=== PATIENT | male | born 1945 ===

== ENCOUNTER 2023-12-09 05:49 | Day surgery (SDC) | payer OTHER, MEDICARE, SELFPAY ==
--- NOTE | 2023-11-04 11:20 | CM ---
Patient is scheduled for an elective R THR on 12/09/23- he is a same day patient. Spoke with patient's prior to surgery. Introduced role of Orthopedic Navigator. She reports that she and patient live in a one story home. There is one step to
enter. He currently functions independently and uses a cane. He also has a raised toilet seat, hip kit and rolling walker. He has never had VN services. PCP is Dr. Sylvester You.
Discussed orthopedic program and post surgical plans. Reviewed that patient will have VN services initially (medicare.gov website and ratings reviewed) and will then start outpatient PT. She selects [facility] (face sheet faxed to VN to
facilitate confirmation of benefits) for patient's home care needs. She is unsure where he will go for outpatient PT.
She is in agreement with plan and confirms that she will be home with him. She also states that their son will be available.
Patient will complete online education.
Plan: Orthopedic Navigator will remain available to assist with the care of patient and will reassess discharge needs after surgery.
[2023-11-18 10:48] VITALS: BMI 34.3
[2023-11-18 11:44] LABS: Hemoglobin 15.3 g/dL (13.0-18.0); Mean Corp Hgb Conc. 34.8 g/dL (33.0-37.0); Mean Corpuscular Volume 86.3 fL (80.0-94.0); Mean Platelet Volume 11.6 fL (7.4-10.4); Platelet Count 166 10^3/uL (130-400); Red Cell Dist. Width 12.4 % (11.5-14.5); White Blood Cell Count 6.5 10^3/uL (4.8-10.8)
[2023-11-18 11:51] LABS: ALT (SGPT) 28 U/L (0-50); AST (SGOT) 32 U/L (17-59); Albumin 4.1 g/dl (3.5-5.0); Alkaline Phosphatase 60 U/L (38-126); Blood Urea Nitrogen 24 mg/dl (9-20); Calcium 9.7 mg/dl (8.4-10.2); Carbon Dioxide 28 mmol/L (22-30); Chloride 102 mmol/L (98-107); Estimated Creatinine Clearance 62 ml/min; Glucose 97 mg/dl (70-99); Potassium 4.2 mmol/L (3.5-5.1); Sodium 139 mmol/L (135-145); Total Protein 6.8 g/dl (6.3-8.2); eGFR > 60.00
[2023-11-18 15:28] VITALS: BMI 34.3
[2023-12-09] VITALS (16 sets, daily range): BP systolic 111–175; BP diastolic 59–86; PULSE 73; O2SAT 97; BMI 34.3
[2023-12-09] MEDS: CELEBREX 200 MG PO (06:23)
[2023-12-09] MEDS: TYLENOL 650 MG PO ×2 (06:23→13:15)
[2023-12-09] MEDS: NORMOSOL-R 1000 IV (06:23)
[2023-12-09] MEDS: ANCEF 5 IV (11:08)
[2023-12-09] MEDS: ROXICODONE 5 MG PO (11:22)
--- NOTE | 2023-12-09 13:05 | CM ---
Addendum entered by RODRIGO Marvin 12/09/23 13:10:
COrrection IT was [facility] home care not DH that were updated on progress and discharge.
Original Note:
Patient had planned R THR today. Met with patient and his at bedside to review discharge plans. Patient will be returning home today with services through [facility]. On Thursday 12/14, patient will start outpatient PT at [facility]. Reviewed
MD follow up in two weeks and patient is aware of need to schedule appointment.
Patient has his rolling walker here with him.
PT and DH VN were kept updated as to progress and discharge plans.
== END 2023-12-09 13:22 | disposition home health service (06) ==
LOC: SDS 05:49
PROVIDERS: ATTENDING PHYSICIAN Orthopaedic Surgery; FAMILY PHYSICIAN Family Medicine; OTHER PHYSICIAN Internal Medicine Cardiovascular Disease; OTHER PHYSICIAN Physician Assistant
DX: M16.11 Unilateral primary osteoarthritis, right hip (principal)
CPT/HCPCS: 27130; 36415; 73502; 80053; 83036; 85027; 87070; 93005; 97161; C1776

== ENCOUNTER 2024-04-06 05:52 | Day surgery (SDC) | payer OTHER, MEDICARE, SELFPAY ==
--- NOTE | 2024-03-30 08:05 | CM ---
Patient is scheduled for an elective R TKR on 04/06/24- he is a same day patient. Spoke with patient's prior to surgery. Patient had a R THR at in December 2023 (also as a same day patient) Reintroduced role of Orthopedic Navigator. She
reports that she and patient live in a one story home. There is one step to enter. He currently functions independently and uses a cane. He also has a raised toilet seat, hip kit and rolling walker. He had VN services through [facility] after his
THR. PCP is Dr. Sylvester You.
Discussed orthopedic program and post surgical plans. Reviewed that patient will have VN services initially (medicare.gov website and ratings reviewed) and will then start outpatient PT. She selects [facility] ([facility] notified of upcoming
surgery) for patient's home care needs and will go to [facility] for outpatient PT.
She is in agreement with plan and confirms that she will be home with him.
Patient will complete online education.
Plan: Orthopedic Navigator will remain available to assist with the care of patient and will reassess discharge needs after surgery.
[2024-04-06] VITALS (15 sets, daily range): BP systolic 97–180; BP diastolic 54–93; PULSE 51; O2SAT 96; BMI 36.3
[2024-04-06] MEDS: CELEBREX 200 MG PO (06:26)
[2024-04-06] MEDS: TYLENOL 650 MG PO (06:26)
[2024-04-06] MEDS: NORMOSOL-R 1000 IV (06:26)
--- NOTE | 2024-04-06 07:57 | W.DS.TRANS ---
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
-
Discharge Instructions:
Sleep Apnea Risk High
Discharge Diagnosis/Procedures R TKA Dr. Bhagat 04/06/24
Diet Diabetic, Carb Controlled
Activity With Walker
Driving Restrictions No driving
Instructions:
Stand-Alone Forms: SDS Total Hip and Knee D/C
Changes to Home Medications: Yes
Discharge Medications:
DC Medications w/original date entered in [employer]
clopidogrel 75 mg tablet (Plavix) 75 mg PO DAILY 11/17/23
simvastatin 20 mg tablet 20 mg PO HS 11/17/23
isosorbide mononitrate 60 mg tablet,extended release 24 hr 60 mg PO DAILY #0 tabs 12/09/23
metoprolol tartrate 25 mg tablet 25 mg PO DAILY 03/10/24
ramipril 10 mg capsule 10 mg PO DAILY 03/10/24
mupirocin 2 % topical ointment 1 applic topical BID infection prevention #1 tube 03/16/24
Saccharomyces boulardii 250 mg capsule (Florastor) 250 mg PO BID #1 cap 04/06/24
acetaminophen 325 mg capsule (Tylenol) 650 mg (2 x 325 mg) PO QID #2 caps 04/06/24
aspirin 325 mg tablet 325 mg PO DAILY blood clot prevention #1 tab 04/06/24
cefadroxil 500 mg capsule 500 mg PO BID infection prevention #14 caps 04/06/24
dexamethasone 4 mg tablet 4 mg PO BID inflammation #6 tabs 04/06/24
docusate sodium 100 mg capsule (Colace) 100 mg PO BID stool softner #1 cap 04/06/24
famotidine 20 mg tablet 20 mg PO HS GI prophylaxis #30 tabs 04/06/24
gabapentin 300 mg capsule 300 mg PO HS sleep/pain #10 caps 04/06/24
magnesium hydroxide 400 mg/5 mL oral suspension (Milk of Magnesia) 30 ml PO HS PRN Constipation #1 mL 04/06/24
ondansetron 4 mg disintegrating tablet 4 mg PO Q6H PRN n/v #20 tabs 04/06/24
oxycodone 5 mg tablet 5 mg PO Q6H PRN 1 tab moderate pain, 2 tabs severe pain #30 tabs 04/06/24
sennosides 8.6 mg tablet (Senokot) 17.2 mg (2 x 8.6 mg) PO BID laxative #2 tabs 04/06/24
Home Medication Changes
cefadroxil 500 mg capsule 500 mg PO BID infection prevention #14 caps 04/06/24
dexamethasone 4 mg tablet 4 mg PO BID inflammation #6 tabs 04/06/24
famotidine 20 mg tablet 20 mg PO HS GI prophylaxis #30 tabs 04/06/24
gabapentin 300 mg capsule 300 mg PO HS sleep/pain #10 caps 04/06/24
ondansetron 4 mg disintegrating tablet 4 mg PO Q6H PRN n/v #20 tabs 04/06/24
oxycodone 5 mg tablet 5 mg PO Q6H PRN 1 tab moderate pain, 2 tabs severe pain #30 tabs 04/06/24
Pending Results: No
--- NOTE | 2024-04-06 10:06 | CM ---
Patient is scheduled for an elective R TKR on 04/06/24- he is a same day patient. Met with while patient in surgery. Reviewed plan for day.
UPdated HOme care team and PT at for therapy at 11:30 am today.
Patient has all DME at home.
to transport home.
[2024-04-06] MEDS: ANCEF 5 IV (11:02)
== END 2024-04-06 12:00 | disposition home or self-care (01) ==
LOC: SDS 05:52
PROVIDERS: ATTENDING PHYSICIAN Orthopaedic Surgery; FAMILY PHYSICIAN Family Medicine
DX: M17.11 Unilateral primary osteoarthritis, right knee (principal)
CPT/HCPCS: 27447; 73560; 97116; 97161; C1713; C1776

== ENCOUNTER 2024-04-07 06:36 | Emergency (ER) | payer OTHER, MEDICARE, SELFPAY ==
[2024-04-07 06:48] VITALS: BP 167/87
== END 2024-04-07 08:43 | disposition other institution (70) ==
LOC: EMR 06:36
DX: M25.561 Pain in right knee (principal); W06.XXXA Fall from bed, initial encounter; Z53.21 Procedure and treatment not carried out due to patient leaving prior to being seen by health care provider; Z96.651 Presence of right artificial knee joint; Z98.890 Other specified postprocedural states

== ENCOUNTER 2024-11-30 07:11 | Inpatient (IN) | payer OTHER, MEDICARE, SELFPAY ==
[2024-11-15 11:19] LABS: Hematocrit 46.8 % (39.0-52.0); Hemoglobin 15.6 g/dL (13.0-18.0); Mean Corp Hgb Conc. 33.3 g/dL (33.0-37.0); Mean Platelet Volume 11.4 fL (7.4-10.4); Platelet Count 145 10^3/uL (130-400); Red Blood Cell Count 5.38 10^6/uL (4.70-6.10); Red Cell Dist. Width 13.2 % (11.5-14.5); White Blood Cell Count 6.3 10^3/uL (4.8-10.8)
[2024-11-15 11:33] LABS: ALT (SGPT) 41 U/L (0-50); AST (SGOT) 35 U/L (17-59); Albumin 4.1 g/dl (3.5-5.0); Alkaline Phosphatase 77 U/L (38-126); Blood Urea Nitrogen 16 mg/dl (9-20); Calcium 9.4 mg/dl (8.4-10.2); Carbon Dioxide 33 mmol/L (22-30); Chloride 103 mmol/L (98-107); Glucose 85 mg/dl (70-99); Potassium 4.8 mmol/L (3.5-5.1); Sodium 141 mmol/L (135-145); Total Bilirubin 0.9 mg/dl (0.2-1.3); Total Protein 6.8 g/dl (6.3-8.2); eGFR > 60.00
[2024-11-15 11:44] LABS: Glycohemoglobin (HgbA1c) 6.1 % (4.0-5.6)
[2024-11-15 13:42] VITALS: BMI 31.5
--- NOTE | 2024-11-16 12:09 | VNURNOTE ---
Patient is scheduled for an elective L TKA on 11/30/24- he is a same day patient with Dr Bhagat. Spoke with patient's spouse prior to surgery. Introduced role of VN Liaison. Spouse Karina stated pt is planning on staying overnight. He has outpt
PT scheduled at [facility] [place] on 12/02.
Spouse is in agreement with plan and states that she will be home with him.
Plan: [facility] [place] outpt PT on 12/02
[2024-11-24 09:38] VITALS: BMI 31.5
[2024-11-30] VITALS (18 sets, daily range): BP systolic 109–191; BP diastolic 67–103; PULSE 72; O2SAT 90
[2024-11-30] MEDS: CELEBREX 200 MG PO (07:42)
[2024-11-30] MEDS: TYLENOL 650 MG PO ×5 (07:42→23:02)
[2024-11-30] MEDS: NORMOSOL-R/PLASMALYTE-A 1000 IV ×2 (07:42→14:51)
--- NOTE | 2024-11-30 10:58 | W.PN.UPDATE ---
Update Note
Progress Note Update
L TKA 11/30/24
DVT ppx ASA
PAST MEDICAL HISTORY:
1. Osteoarthritis status post right total hip arthroplasty 12/2023, L TKA 04/06/24.
2. Obesity, BMI 31.5.
3. Hypertension.
4. Hyperlipidemia.
5. CAD status post PCI, RONAL x2 05/2009 on DOAP.
6. 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
7. Pulmonary nodule.
8. Cerebral AVM status post gamma knife 2018.
9. Ambulatory dysfunction with balance and gait disturbance.
10. Degenerative disk disease.
11. Left renal carcinoma status post left nephrectomy and
chemotherapy 2018.
12. Hearing impairment.
13. Borderline diabetes.
14. Remote history of tobacco abuse.
[2024-11-30] MEDS: ROXICODONE 5 MG PO (11:12)
--- NOTE | 2024-11-30 11:21 | W.DS.TRANS ---
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
-
Discharge Instructions:
Sleep Apnea Risk Intermediate
Discharge Diagnosis/Procedures L TKA 11/30/24
Diet As tolerated
Activity With Walker
Driving Restrictions No driving
Bathing Restrictions OK to Shower
Other Services PT
Instructions:
Stand-Alone Forms: Total Hip/Knee Replacement D/C
Changes to Home Medications: Yes
Discharge Medications:
DC Medications w/original date entered in [employer]
clopidogrel 75 mg tablet (Plavix) 75 mg PO DAILY 11/17/23
simvastatin 20 mg tablet 20 mg PO HS 11/17/23
isosorbide mononitrate 60 mg tablet,extended release 24 hr 60 mg PO DAILY #0 tabs 12/09/23
metoprolol tartrate 25 mg tablet 25 mg PO DAILY 03/10/24
ramipril 10 mg capsule 5 mg PO BID 03/10/24
aspirin 81 mg capsule 81 mg PO DAILY 11/24/24
mupirocin 2 % topical ointment 1 applic topical BID 11/24/24
Saccharomyces boulardii 250 mg capsule (Florastor) 250 mg PO BID #1 cap 11/30/24
acetaminophen 325 mg tablet (Tylenol) 650 mg (2 x 325 mg) PO QID #1 tab 11/30/24
aspirin 325 mg tablet 325 mg PO DAILY blood clot prevention #1 tab 11/30/24
cefadroxil 500 mg capsule 500 mg PO BID infection prevention #14 caps 11/30/24
dexamethasone 4 mg tablet 4 mg PO BID inflammation #6 tabs 11/30/24
docusate sodium 100 mg capsule (Colace) 100 mg PO BID stool softner #1 cap 11/30/24
magnesium hydroxide 400 mg/5 mL oral suspension (Milk of Magnesia) 30 ml PO HS PRN Constipation #1 mL 11/30/24
ondansetron 4 mg disintegrating tablet 4 mg PO Q6H PRN n/v #20 tabs 11/30/24
oxycodone 5 mg tablet 5 mg PO Q6H PRN 1 tab moderate pain, 2 tabs severe pain #30 tabs 11/30/24
sennosides 8.6 mg tablet (Senokot) 17.2 mg (2 x 8.6 mg) PO BID laxative #2 tabs 11/30/24
Home Medication Changes
mupirocin 2 % topical ointment 1 applic topical BID 11/24/24
Saccharomyces boulardii 250 mg capsule (Florastor) 250 mg PO BID #1 cap 11/30/24
acetaminophen 325 mg tablet (Tylenol) 650 mg (2 x 325 mg) PO QID #1 tab 11/30/24
aspirin 325 mg tablet 325 mg PO DAILY blood clot prevention #1 tab 11/30/24
cefadroxil 500 mg capsule 500 mg PO BID infection prevention #14 caps 11/30/24
dexamethasone 4 mg tablet 4 mg PO BID inflammation #6 tabs 11/30/24
docusate sodium 100 mg capsule (Colace) 100 mg PO BID stool softner #1 cap 11/30/24
magnesium hydroxide 400 mg/5 mL oral suspension (Milk of Magnesia) 30 ml PO HS PRN Constipation #1 mL 11/30/24
ondansetron 4 mg disintegrating tablet 4 mg PO Q6H PRN n/v #20 tabs 11/30/24
oxycodone 5 mg tablet 5 mg PO Q6H PRN 1 tab moderate pain, 2 tabs severe pain #30 tabs 11/30/24
sennosides 8.6 mg tablet (Senokot) 17.2 mg (2 x 8.6 mg) PO BID laxative #2 tabs 11/30/24
Pending Results: No
--- NOTE | 2024-11-30 14:00 | PTCARENOTE ---
Pt received from the PACU via bed. Transport was w/o incident. Pt is AAox3, HRR, lungs are clear, resp. easy, pulse ox 100% on 2L 02. VSS, Pt is afebrile. Pt denies nausea and reports pain as mild. Pt able to move toes of left foot and reports full
sensation to b/l lower ext. Pt's pedal pulses strong b/l feet. Pt oriented to new hosp. environment. Pt verbalizes understanding of instructions. Call espinal is within reach.
[2024-11-30] MEDS: DILAUDID 0.5 MG IV (14:52)
[2024-11-30] MEDS: ZOFRAN 4 MG IV (15:39)
[2024-11-30] MEDS: LOPRESSOR 25 MG PO (17:28)
[2024-11-30] MEDS: ASPIRIN 325 MG PO (17:28)
[2024-11-30] MEDS: ANCEF 5 IV (17:29)
[2024-11-30] MEDS: ALTACE 2.5 MG PO (17:29)
[2024-11-30] MEDS: BACTROBAN 2% OINTMENT 1 APPLIC NASAL (20:06)
[2024-11-30] MEDS: COLACE 100 MG PO (20:07)
[2024-11-30] MEDS: SENOKOT 17.2 MG PO (20:07)
[2024-11-30] MEDS: TORADOL 15 MG IV (20:07)
[2024-11-30] MEDS: ULTRAM 50 MG PO (20:07)
[2024-11-30] MEDS: DECADRON 6 MG IV (20:08)
[2024-11-30] MEDS: NEURONTIN 300 MG PO (21:02)
[2024-11-30] MEDS: LIPITOR 10 MG PO (21:02)
[2024-11-30] MEDS: PEPCID 40 MG PO (21:02)
--- NOTE | 2024-11-30 23:45 | PTCARENOTE ---
Pt b/p was high at 20:00, but i gave him pain meds and requested of the CAREER AND GUIDANCE COUNSELOR to stop his IV fluids, he was tolerating a regular diet. At 23:28 the PCT got a b/p of 191/103 (automatic). I did a manual on the Pt it was 174/86 HR in the 80's. The CAREER AND GUIDANCE COUNSELOR
visited 2S, I asked about a b/p med. CAREER AND GUIDANCE COUNSELOR said if the sys manual was > 180 to let her know. Otherwise, b/p was alright for tonight. Pt stated his pain was well controlled and did not require any additional pain management. He did use ice packs on his
left knee on and off throughout the night.
[2024-12-01] VITALS (9 sets, daily range): BP systolic 131–204; BP diastolic 58–100; PULSE 63; O2SAT 95
[2024-12-01] MEDS: ANCEF 5 IV (01:14)
[2024-12-01] MEDS: TYLENOL 650 MG PO ×3 (03:29→12:29)
[2024-12-01] MEDS: ALTACE 2.5 MG PO ×2 (08:09→10:37)
[2024-12-01] MEDS: ASPIRIN 325 MG PO (08:09)
[2024-12-01] MEDS: BACTROBAN 2% OINTMENT 1 APPLIC NASAL (08:09)
[2024-12-01] MEDS: CELEBREX 200 MG PO (08:11)
[2024-12-01] MEDS: COLACE 100 MG PO (08:11)
[2024-12-01] MEDS: SENOKOT 17.2 MG PO (08:11)
[2024-12-01] MEDS: DECADRON 6 MG IV (08:11)
[2024-12-01] MEDS: LOPRESSOR 25 MG PO (08:11)
[2024-12-01] MEDS: TORADOL 15 MG IV (08:12)
[2024-12-01] MEDS: ULTRAM 50 MG PO (08:12)
[2024-12-01] MEDS: ROXICODONE 5 MG PO (10:01)
--- NOTE | 2024-12-01 10:04 | W.PN.ORTHO ---
Today's Communication / Plan
-
d/c
Assessment
.
Distal Motor Intact: Yes
Dressing:
Clean, dry and intact.
Assessment:
Hypertension.-accelerated--dose Ramipril and Oxy-nurse requested to recheck with manual cuff prior to d/c
Hyperlipidemia.
CAD status post PCI, RONAL x2 05/2009 on DOAP.
-stable on tele
-resume Plavix POD#2
Cerebral AVM status post gamma knife 2017.
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
-continue ASA uninterrupted and resume Plavix POD #2-maintain good BP control and recheck prior to d/c
Ambulatory dysfunction with balance and gait disturbance.
-Fall precautions
Plan
.
Surgery / Date: L TKA 11/30/24
DVT Prophylaxis: Aspirin
Activity:
Out of bed.
PT/OT
Discharge Plan: Home w/ Outpatient PT
Subjective
.
.:
Patient resting comfortably.
Vital Signs and Labs
.
Vital Signs and Labs:
Lab Results
11/15/24 10:38
11/15/24 10:38
Temp Pulse Resp BP Pulse Ox
97.7 F 64 16 184/79 96
12/01/24 07:15 12/01/24 08:09 12/01/24 07:15 12/01/24 08:09 12/01/24 07:15
Non-invasive Hgb result: 13.9
Physical Exam
-
HEENT: No pallor, cyanosis, or jaundice. Throat clear.
NECK: Supple. No JVD.
RESPIRATORY: Lungs clear to auscultation.
CVS: S1, S2 normal. RRR.� No murmur, rub or gallop.
ABDOMEN: Soft, non-tender. No distension. BS+/normal.
EXTREMITIES: strength equal, no calf pain with palpation
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 No focal deficits. refrigeration manager grossly intact
--- NOTE | 2024-12-01 10:18 | CM ---
Reviewed the chart notes and spoke with the patient at the bedside. The patient resides with his spouse in a one story home with two steps to enter. The patient has a cane, rolling walker, and shower chair. The patient has had VN in the past, but
could not recall the agency, but no SNF. The patient confirmed his pharmacy of choice is [facility] and PCP is Sylvester You. Patient to start outpatient therapy with [facility] on Thursday. The patient's spouse will provide
transportation home and to PT. CM continues to be available to patient/family and is monitoring medical plan for needs at discharge.
Plan: Discharge to home when medically stable. Outpatient therapy.
[2024-12-01] MEDS: IMDUR (EXTENDED RELEASE) 60 MG PO (12:28)
== END 2024-12-01 15:18 | disposition home or self-care (01) | DRG 469 ==
LOC: 2 SOUTH 07:11
PROVIDERS: ADMITTING PHYSICIAN Orthopaedic Surgery; FAMILY PHYSICIAN Family Medicine
PROC: 0SRD069 Replacement of Left Knee Joint with Oxidized Zirconium on Polyethylene Synthetic Substitute, Cemented, Open Approach (ICD-10-PCS; 2024-11-30)
DX: M17.12 Unilateral primary osteoarthritis, left knee (principal); Q28.2 Arteriovenous malformation of cerebral vessels; I10 Essential (primary) hypertension; E78.5 Hyperlipidemia, unspecified; I25.10 Atherosclerotic heart disease of native coronary artery without angina pectoris; Z79.02 Long term (current) use of antithrombotics/antiplatelets
CPT/HCPCS: 36415; 73560; 80053; 83036; 85027; 87070; 97110; 97116; 97162; 97166; 97535; C1713; C1776

== ENCOUNTER 2025-06-23 06:04 | Day surgery (SDC) | payer OTHER, MEDICARE, SELFPAY ==
--- NOTE | 2025-04-10 12:59 | CM ---
CM reviewed medical records. CM spoke with patient's via phone. confirmed demographics. Patient lives independently with . stated they do not have any help and she has requested that patient stay overnight. Patient's had been
advised by Dr. Elizalde with insurance would not approve an overnight stay.
stated that she feels she cannot handle patient post-operatively because he is too demanding and she cannot keep up with his demands. She feels that if patient stays over night , he will require less care once he return home.
Patient does have an outpatient PT facility [facility].
Patient's stated that patient was known to [facility]. Patient's stated that due to insurance restraints, patient may not be able to receive home care moving forward.
CM will await further discussions and ortho PA evaluation for further discharge planning
[2025-06-02 11:00] LABS: Hematocrit 43.5 % (39.0-52.0); Hemoglobin 14.8 g/dL (13.0-18.0); Mean Corp Hgb Conc. 34.0 g/dL (33.0-37.0); Mean Corpuscular Volume 86.1 fL (80.0-94.0); Platelet Count 141 10^3/uL (130-400); Red Cell Dist. Width 12.7 % (11.5-14.5)
[2025-06-02 11:20] LABS: ALT (SGPT) 43 U/L (0-50); AST (SGOT) 41 U/L (17-59); Albumin 4.1 g/dl (3.5-5.0); Alkaline Phosphatase 58 U/L (38-126); Blood Urea Nitrogen 20 mg/dl (9-20); Calcium 9.4 mg/dl (8.4-10.2); Carbon Dioxide 28 mmol/L (22-30); Chloride 106 mmol/L (98-107); Glucose 131 mg/dl (70-99); Potassium 4.5 mmol/L (3.5-5.1); Sodium 139 mmol/L (135-145); Total Protein 6.8 g/dl (6.3-8.2); eGFR > 60.00
[2025-06-02 11:34] LABS: Glycohemoglobin (HgbA1c) 5.9 % (4.0-5.6)
[2025-06-02 14:19] VITALS: BMI 32.2
[2025-06-02 14:49] VITALS: BMI 32.2
--- NOTE | 2025-06-02 14:49 | HPS.HSE ---
Family Physician
-
Family Physician: Sylvester You
Chief Complaint
-
Advanced primary osteoarthritis of the right shoulder with rotator cuff arthropathy. Same-day surgery.
History of Present Illness
The patient is a 79-year-old male presenting today for advanced primary osteoarthritis of the right shoulder with rotator cuff arthropathy. The patient previously underwent an uncomplicated right total hip arthroplasty, 12/2023, a right
total knee arthroplasty, 04/2024, and a left total knee arthroplasty, 11/2024, by Dr. Adam Bhagat. The patient returns to [facility] today with complaints of significant right shoulder pain and instability secondary to his
osteoarthritis. He notes that his current right shoulder symptoms are greatly interfering with his activities of daily living and are overall impacting his quality of life. He has tried and failed multiple conservative treatment measures in the past
for his right shoulder symptoms. These conservative treatment measures include activity modification, physician supervised therapeutic exercises, formal physical therapy, intra-articular injections, medical management with Tylenol, and the
application of ice and/or heat. Recent MRI findings of the right shoulder demonstrated a high riding humeral head with a complete tear of the supraspinatus and infraspinatus tendons with significant retraction and atrophy. He was determined to be in
need of a right reverse total shoulder arthroplasty. He denies any current complaints today such as chest pain, shortness of breath, palpitations, nausea, vomiting, diarrhea, lightheadedness, dizziness, cough, sore throat, or fever.
Medical History
Past Medical History
Past Medical History: Reports Other
Additional Past Medical History:
1. Osteoarthritis, status post right total hip arthroplasty, 12/2023, a right total knee arthroplasty, 04/2024, and a left total knee arthroplasty, 11/2024, by Dr. Adam Bhagat.
2. Hypertension.
3. Hypercholesterolemia.
4. Coronary artery disease, status post PCI with drug-eluting stent x2 05/2009; on Aspirin and Plavix.
5. Left ventricular outflow tract obstruction.
6. Mild mitral regurgitation.
7. Cerebellar CVA, 03/2018, without residual side effects.
8. Pulmonary nodule.
9. Nephrolithiasis.
10. Cerebral AVM, status post gamma knife 2018.
11. Balance difficulties.
12. Degenerative disc disease.
13. Left renal carcinoma, status post left nephrectomy and chemotherapy 2018.
14. Hearing impairment bilaterally.
15. Prediabetes, A1c 5.9.
16. Obesity, BMI 32.2.
17. Remote history of tobacco abuse.
Past Surgical History: Reports Other
Additional Past Surgical History:
1. Right total hip arthroplasty, 12/2023, by Dr. Adam Bhagat.
2. Right total knee arthroplasty, 04/2024, by Dr. Adam Bhagat.
3. Left total knee arthroplasty, 11/2024, by Dr. Adam Bhagat.
4. Left clavicle repair.
5. Lumbar discectomy.
6. Left nephrectomy.
7. Gamma knife for cerebral AVM.
8. PCI with stent x2.
9. Cardiac catheterization.
10. Transesophageal echocardiogram.
11. Right inguinal hernia repair.
12. Right foot fracture repair.
13. Multiple cystoscopies.
14. Colonoscopy.
Social History
Tobacco: Former Smoker (He is a former less than one pack per day cigarette smoker who quit tobacco products altogether approximately 25 years ago.)
Alcohol: None
Personal:
Living: Other (He lives in a ranch-style home with his . )
Family History
Family History: Not pertinent
Allergies / Home Medications
Allergy/Medication List:
Home medications:
1. Acetaminophen 650 mg p.o. daily as needed.
2. Aspirin 81 mg p.o. daily.
3. Clopidogrel 75 mg p.o. daily.
4. Isosorbide Mononitrate 60 mg p.o. daily.
5. Metoprolol Tartrate 25 mg p.o. twice a day.
6. Ramipril 5 mg p.o. daily.
7. Simvastatin 20 mg p.o. at bedtime.
Allergies: Shrimp. No known drug allergies.
Review of Systems
-
A 12 point ROS was completed and negative except as noted: Yes
Physical Exam
Vital Signs
Blood pressure 155/74. Heart rate 54. Respirations 18. Pulse ox 97% on room air.
Height 5 feet, 9 inches. Weight 98.8 kg. BMI 32.2.
Physical Exam
General: Well Developed, Well Nourished and No Apparent Distress
HEENT: NormoCephalic, Moist mucous membranes, Atraumatic, PERRLA and Hearing Impaired
Respiratory: Clear
Cardiac: Bradycardia
GI: Soft, Non Tender, Non Distended and Other (Obese. )
Musculoskeletal: Other (Right shoulder has tenderness to palpation. Elevation of 95 degrees, external rotation of 10 degrees and internal rotation to his hip pocket.�Strength is 3/5 with elevation and external rotation.)
Skin: Warm and Dry
Neuro: AO x 3 and Nonfocal/grossly intact
Laboratory Results
-
06/02/25 09:39
06/02/25 09:39
Laboratory Results
Total Bilirubin 0.9 mg/dl (0.2-1.3) 06/02/25 09:39
AST 41 U/L (17-59) 06/02/25 09:39
ALT 43 U/L (0-50) 06/02/25 09:39
Alkaline Phosphatase 58 U/L (38-126) 06/02/25 09:39
Hemoglobin A1c 5.9.
MRSA screen negative.
EKG provided by Cardiology.
Echocardiogram 09/30/2023: Estimated ejection fraction is >75%. Grade I diastolic dysfunction. Mild mitral regurgitation. Compared to the prior study, there is no significant change. The left ventricle is hyperdynamic. The peak and mean
intra-cavitary gradients with Valsalva are 23 and 14 mmHg respectively.
Nuclear stress test 11/17/2023: Lateral scar with some sukhjinder-infarct ischemia. This is similar to his prior stress test in 2018.
Impression/Plan
-
CLEARANCES:
1. Primary Medical, Dr. Sylvester You - cleared.
Primary medical phone number: [phone].
2. Cardiology, Dr. Aurelio Smith - cleared.
3. Dental - pending.
IMPRESSION/PLAN:
1. Advanced primary osteoarthritis of the right shoulder with rotator cuff arthropathy in need of a right reverse total shoulder arthroplasty by Dr. Rj Elizalde on 06/23/2025. The benefits and risks of the procedure have been explained to the
patient. The patient understands these risks and wishes to proceed.
2. DVT prophylaxis: Aspirin 325 mg p.o. daily for 4 weeks post-surgery and bilateral venous compression devices.
3. Pain management: The patient has stable comorbidities as referenced by his primary care physician and contracts director and is medically optimized to proceed as a Same-Day Surgery candidate on 06/23/2025. In preparation for his procedure, he has
already been prescribed Oxycodone 5 mg, 1-2 tablets p.o. every 6 hours as needed for moderate to severe post-operative pain. He will also utilize Acetaminophen 650 mg p.o. every 4 hours while awake and Dexamethasone 4 mg p.o. twice a day for 3 days
post-surgery. NSAIDs will be avoided post-operatively due to his prior left nephrectomy as well as concurrent Aspirin and Plavix use.
4. Coronary artery disease: The patient was advised to hold his home Plavix seven days prior to his procedure. We will resume his Plavix on post-operative day 2 as long as he remains hemodynamically stable.
Patient's home phone number: [phone].
Patient's contact (Karina Walters - Spouse): [phone].
[2025-06-23] VITALS (7 sets, daily range): BP systolic 131–190; BP diastolic 67–104
[2025-06-23] MEDS: TYLENOL 1000 MG PO (07:43)
[2025-06-23] MEDS: CELEBREX 200 MG PO (07:43)
[2025-06-23] MEDS: NORMOSOL-R/PLASMALYTE-A 1000 IV (07:44)
--- NOTE | 2025-06-23 09:21 | W.DS.TRANS ---
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
-
Discharge Instructions:
Sleep Apnea Risk High
Discharge Diagnosis/Procedures R Reverse TSA Dr. Elizalde 06/23/25
Diet As tolerated
Activity No strenuous activity
Driving Restrictions No driving
Instructions:
Stand-Alone Forms: SDS Total Shoulder D/C Inst.
Changes to Home Medications: Yes
Discharge Medications:
DC Medications w/original date entered in [employer]
clopidogrel 75 mg tablet (Plavix) 75 mg PO DAILY 11/17/23
Held on 06/23/25. Instructions: Resume on 06/25/25.
simvastatin 20 mg tablet 20 mg PO HS 11/17/23
isosorbide mononitrate 60 mg tablet,extended release 24 hr 60 mg PO DAILY #0 tabs 12/09/23
metoprolol tartrate 25 mg tablet 25 mg PO BID 03/10/24
cefadroxil 500 mg capsule 500 mg PO BID #14 caps 06/02/25
dexamethasone 4 mg tablet 4 mg PO BID Anti-inflammatory #7 tabs 06/02/25
famotidine 20 mg tablet (Pepcid) 20 mg PO HS #30 tabs 06/02/25
mupirocin 2 % topical ointment 1 applic intranasal BID #1 tube 06/02/25
ondansetron HCl 4 mg tablet 4 mg PO Q6H PRN nausea and vomiting #30 tabs 06/02/25
oxycodone 5 mg tablet 5 - 10 mg (1 - 2 x 5 mg) PO Q6H PRN moderate-severe pain #30 tabs 06/02/25
Saccharomyces boulardii 250 mg capsule (Florastor) 250 mg PO BID #1 cap 06/23/25
acetaminophen 325 mg tablet (Tylenol) 650 mg (2 x 325 mg) PO QID #0 tabs 06/23/25
aspirin 325 mg tablet 325 mg PO DAILY blood clot prevention #1 tab 06/23/25
docusate sodium 100 mg capsule (Colace) 100 mg PO BID stool softner #1 cap 06/23/25
magnesium hydroxide 400 mg/5 mL oral suspension (Milk of Magnesia) 30 ml PO HS PRN constipation #1 mL 06/23/25
ramipril 10 mg capsule 5 mg (1/2 x 10 mg) PO Daily #0 caps 06/23/25
sennosides 8.6 mg tablet (Senokot) 17.2 mg (2 x 8.6 mg) PO BID laxative #2 tabs 06/23/25
Home Medication Changes
cefadroxil 500 mg capsule 500 mg PO BID #14 caps 06/02/25
dexamethasone 4 mg tablet 4 mg PO BID Anti-inflammatory #7 tabs 06/02/25
famotidine 20 mg tablet (Pepcid) 20 mg PO HS #30 tabs 06/02/25
mupirocin 2 % topical ointment 1 applic intranasal BID #1 tube 06/02/25
ondansetron HCl 4 mg tablet 4 mg PO Q6H PRN nausea and vomiting #30 tabs 06/02/25
oxycodone 5 mg tablet 5 - 10 mg (1 - 2 x 5 mg) PO Q6H PRN moderate-severe pain #30 tabs 06/02/25
Saccharomyces boulardii 250 mg capsule (Florastor) 250 mg PO BID #1 cap 06/23/25
acetaminophen 325 mg tablet (Tylenol) 650 mg (2 x 325 mg) PO QID #0 tabs 06/23/25
aspirin 325 mg tablet 325 mg PO DAILY blood clot prevention #1 tab 06/23/25
docusate sodium 100 mg capsule (Colace) 100 mg PO BID stool softner #1 cap 06/23/25
magnesium hydroxide 400 mg/5 mL oral suspension (Milk of Magnesia) 30 ml PO HS PRN constipation #1 mL 06/23/25
ramipril 10 mg capsule 5 mg (1/2 x 10 mg) PO Daily #0 caps 06/23/25
sennosides 8.6 mg tablet (Senokot) 17.2 mg (2 x 8.6 mg) PO BID laxative #2 tabs 06/23/25
Pending Results: No
--- NOTE | 2025-06-23 10:44 | PTCARENOTE ---
Dr Goddard at bedside to check on pt, made aware of reddened area around left eye & cheekbone, no open areas. Pt also mentioned feeling like he has ' a fat lip '- upper lip appears swollen slightly, again, no open area present
[2025-06-23] MEDS: ANCEF 5 IV (12:12)
== END 2025-06-23 12:25 | disposition home or self-care (01) ==
LOC: SDS 06:04
PROVIDERS: ATTENDING PHYSICIAN Specialist; FAMILY PHYSICIAN Family Medicine; REFERRING PHYSICIAN Internal Medicine Cardiovascular Disease
DX: M19.011 Primary osteoarthritis, right shoulder (principal); Z96.611 Presence of right artificial shoulder joint; M25.711 Osteophyte, right shoulder; Z59.71 Insufficient health insurance coverage
CPT/HCPCS: 23472; C1776; 36415; 73020; 80053; 83036; 85027; 87070; C1713